=== PATIENT | male | born 1960 | race Caucasian/White ===

== ENCOUNTER 2016-11-25 11:38 | Emergency (ER) | payer OTHER ==
[~2016-11-25] VITALS: Ht 172.7 cm; Wt 56.2 kg
[~2016-11-25 11:38] MED LIST: BENTYL20 MG PO; HYDROCODONE BIT1 T11 PO; MOTRIN800 MG PO; PEN-VEE K500 MG PO; Zofran4 MG PO
[2016-11-25] MEDS ORDERED: PROAIR HFA8.5 GM INH (11:42)
[2016-11-25 12:44] LABS: HEMATOCRIT 45.1 % (42.0-52.0); HEMOGLOBIN 15.6 g/dl (14.0-18.0); MEAN CELL VOLUME 92.2 fl (80.0-94.0); MEAN CORPUSCULAR HGB 31.9 pg (27.0-31.0); MEAN CORPUSCULAR HGB CONC 34.6 g/dl (33.0-37.0); PLATELET COUNT AUTOMATED 294 10*3/uL (130-400); RED BLOOD COUNT 4.89 10*6/uL (4.50-5.90); RED CELL DISTRI WIDTH 12.7 % (0-14.5); WHITE BLOOD COUNT 10.1 10*3/uL (4.8-10.8)
[2016-11-25 12:48] LABS: PROTHROMBIN TIME 10.1 SECONDS (9.0-12.4)
[2016-11-25 12:56] LABS: ALBUMIN 3.6 gm/dl (3.1-4.5); ALKALINE PHOSPHATASE 104 U/L (45-117); BILIRUBIN, TOTAL 0.2 mg/dl (0.2-1.0); BUN 15 mg/dl (7-24); CARBON DIOXIDE 25 mmol/L (21-32); CHLORIDE 109 mmol/L (98-107); CPK 94 U/L (39-308); EST GLOM FILT AFRICAN AMERICAN > 60 ml/min; GLUCOSE 98 mg/dL (65-99); MAGNESIUM 2.1 mg/dL (1.5-2.1); POTASSIUM 4.2 mmol/L (3.5-5.1); SGOT/AST 14 IU/L (3-35); SODIUM 143 mmol/L (136-145); TOTAL PROTEIN 7.4 gm/dL (6.4-8.2)
[2016-11-25 12:59] LABS: ATYPICAL LYMPHS 1 % (0-0); CKMB 1.3 ng/ml (0.5-3.6); LYMPHOCYTE # 2.8 10*3/uL (1.3-4.4); MONOCYTE # 0.6 10*3/uL (0.1-1.0); NEUTROPHIL # 6.7 10*3/uL (2.3-7.9); NEUTROPHILS 66 % (47-73); PLATELET SUFFICIENCY NORMAL (NORMAL); SGPT/ALT 20 U/L (12-78); TOTAL CELLS COUNTED 100 #CELLS
[2016-11-25 13:06] LABS: TROPONIN I < 0.015 ng/ml (<0.045)
[2016-11-25] MEDS ORDERED: PREDNISONE10 MG PO (14:08)
[2016-11-25] MEDS ORDERED: DOXYCYCLINE100 M3 PO (14:08)
== END 2016-11-25 14:15 | disposition home or self-care (01) ==
LOC: ED 11:38
PROVIDERS: Registered Nurse
DX: J44.1 Chronic obstructive pulmonary disease with (acute) exacerbation (principal); J20.9 Acute bronchitis, unspecified; F17.200 Nicotine dependence, unspecified, uncomplicated